=== PATIENT | female | born 1990 | race Caucasian/White ===

== ENCOUNTER 2020-04-22 15:39 | Outpatient (CLI) | payer OTHER, SELFPAY ==
[2020-04-22 16:10] LABS: SARS-CoV-2 Ag Negative (Negative)
[2020-04-24 19:10] LABS: SARS-CoV-2 RNA PCR Negative
== END 2020-04-22 15:40 | disposition home or self-care (01) ==
PROVIDERS: PCP Nurse Practitioner Family; Visit Provider Nurse Practitioner Family
DX: J02.9 Acute pharyngitis, unspecified (principal); Z20.828 Contact with and (suspected) exposure to other viral communicable diseases
CPT/HCPCS: 36415; 87081; 87426; 87635; 87880; C9803; U0003

== ENCOUNTER 2020-09-22 10:57 | Outpatient (CLI) | payer BC, SELFPAY ==
[2020-09-22 12:23] LABS: SARS-CoV-2 RNA PCR Negative (Negative)
== END 2020-09-22 10:58 | disposition home or self-care (01) ==
LOC: CHSLAB 10:59
PROVIDERS: PCP Nurse Practitioner Family; Visit Provider Nurse Practitioner Family
DX: J02.9 Acute pharyngitis, unspecified (principal); Z20.822 Contact with and (suspected) exposure to COVID-19
CPT/HCPCS: C9803; U0003; U0005